=== PATIENT | female | born 1945 | race Caucasian/White ===

== ENCOUNTER 2021-12-15 13:21 | Day surgery (SDC) | payer MEDICARE, OTHER ==
[~2021-12-15 13:21] MED LIST: Cefuroxime 10 MG/ML SYRINGE EYERT SCH; Lidocaine 1% PF 2 ML SDV INJECT SCH; Pilocarpine 4% Ophth Soln 15 ML Bot EYERT SCH
[2021-12-15] MEDS: Polymyxin B/Trimethoprim 10 ML Bottle EYERT SCH ×3 (14:23→16:00)
[2021-12-15] MEDS: Brimonidine 0.2% Ophth Soln 5 ML Bottle EYERT SCH ×3 (14:25→16:00)
[2021-12-15] MEDS: Phenylephrine 2.5% Ophth Soln 2 ML Bot EYERT SCH ×5 (14:30→15:43)
[2021-12-15] MEDS: Tropicamide 1% Ophth Soln 15 ML Bottle EYERT SCH ×4 (14:34→15:14)
[2021-12-15] MEDS: Tetracaine HCl/PF 0.5% 4 ML Bottle EYEBOTH SCH ×4 (15:26→15:48)
== END 2021-12-15 16:10 | disposition home or self-care (01) ==
LOC: JD.SDS 13:21
PROVIDERS: ATTEND Ophthalmology
DX: H25.813 Combined forms of age-related cataract, bilateral (principal); H43.813 Vitreous degeneration, bilateral; H43.393 Other vitreous opacities, bilateral; H02.831 Dermatochalasis of right upper eyelid; F41.9 Anxiety disorder, unspecified; E78.00 Pure hypercholesterolemia, unspecified; Z79.899 Other long term (current) drug therapy; Z98.890 Other specified postprocedural states
CPT/HCPCS: 66984; C1780; J0697

== ENCOUNTER → 2022-01-12 | Day surgery (SDC) | payer MEDICARE, OTHER ==
[~2022-01-12] MED LIST changes: +Cefuroxime 10 MG/ML SYRINGE EYELF SCH; -Cefuroxime 10 MG/ML SYRINGE EYERT SCH; +Pilocarpine 4% Ophth Soln 15 ML Bot EYELF SCH; -Pilocarpine 4% Ophth Soln 15 ML Bot EYERT SCH
[2022-01-12] MEDS: Polymyxin B/Trimethoprim 10 ML Bottle EYELF SCH ×3 (12:22→13:37)
[2022-01-12] MEDS: Brimonidine 0.2% Ophth Soln 5 ML Bottle EYELF SCH ×2 (12:28→13:37)
[2022-01-12] MEDS: Phenylephrine 2.5% Ophth Soln 2 ML Bot EYELF SCH ×5 (12:32→13:18)
[2022-01-12] MEDS: Tropicamide 1% Ophth Soln 15 ML Bottle EYELF SCH ×4 (12:37→13:06)
[2022-01-12] MEDS: Tetracaine HCl/PF 0.5% 4 ML Bottle EYEBOTH SCH ×2 (13:14→13:25)
== END ==
LOC: JD.SDS 13:36
PROVIDERS: ATTEND Ophthalmology
DX: H25.812 Combined forms of age-related cataract, left eye (principal); H16.103 Unspecified superficial keratitis, bilateral; H16.223 Keratoconjunctivitis sicca, not specified as Sjogren's, bilateral; H02.834 Dermatochalasis of left upper eyelid; H02.831 Dermatochalasis of right upper eyelid; H43.813 Vitreous degeneration, bilateral; H43.393 Other vitreous opacities, bilateral; F41.9 Anxiety disorder, unspecified; E78.00 Pure hypercholesterolemia, unspecified; Z98.890 Other specified postprocedural states; Z79.899 Other long term (current) drug therapy; Z96.1 Presence of intraocular lens
CPT/HCPCS: 66984; C1780; J0697

== ENCOUNTER 2022-12-11 07:55 | Day surgery (SDC) | payer MEDICARE, BC ==
[~2022-12-11 07:55] MED LIST changes: +Acetaminophen 325 MG Tab PO SCH; -Cefuroxime 10 MG/ML SYRINGE EYELF SCH; +Dexamethasone 4 MG/ML 5 ML MDV ONE; +EPINEPHrine 1 MG/ML SDV ONE; +Lidocaine 1% 5 ML VIAL ONE; -Lidocaine 1% PF 2 ML SDV INJECT SCH; +Midazolam 1 MG/ML 2 ML SDV ONE; +Morphine 8 MG, EPINEPHrine 0.3 MG, Cefuroxime 750 MG, Ketorolac 30 MG, Sodium Chloride ... PRN; -Pilocarpine 4% Ophth Soln 15 ML Bot EYELF SCH; +Pregabalin 25 MG Cap PO SCH; +Propofol 200 MG/20 ML SDV ONE; +Ropivacaine 0.5% 5 MG/ML 30 ML SDV ONE; +Sodium Chloride 0.9% 10 ML Syringe FLUSH SCH; +ceFAZolin 2 GM Vial ONE; +fentaNYL 100 MCG/2 ML SDV ONE; +oxyCODONE ER 10 MG TAB.ER PO SCH
[2022-12-11] MEDS ORDERED: Lidocaine 1%/Sod Bicarbonate in NS 8.4% 1 ML Syringe IDERM PRN (08:00)
[2022-12-11] MEDS ORDERED: Lactated Ringers 1,000 ML IV SCH (08:00)
[2022-12-11] MEDS ORDERED: Tranexamic Acid 1,000 MG/10 ML Vial ONE (08:04)
[2022-12-11] MEDS ORDERED: Vancomycin 1 GM SDV ONE (08:04)
[2022-12-11] MEDS ORDERED: ePHEDrine 50 MG/ML SDV ONE (09:30)
[2022-12-11] MEDS ORDERED: Flumazenil 0.1 MG/ML 5 ML MDV ONE (10:17)
[2022-12-11] MEDS ORDERED: Acetaminophen/HYDROcodone 325-5 MG Tab PO PRN (11:18)
== END 2022-12-11 14:45 | disposition home or self-care (01) ==
LOC: JD.SDS 07:55
PROVIDERS: ATTEND Orthopaedic Surgery
DX: M17.11 Unilateral primary osteoarthritis, right knee (principal); E78.00 Pure hypercholesterolemia, unspecified; F41.9 Anxiety disorder, unspecified; G25.81 Restless legs syndrome; G47.33 Obstructive sleep apnea (adult) (pediatric); M81.0 Age-related osteoporosis without current pathological fracture; Z79.899 Other long term (current) drug therapy
CPT/HCPCS: 0055T; 27447; 64447; 73560; 97110; 97116; 97161; A9270; C1713; C1776; J0171; J0690; J0697; J1100; J1885; J2250; J2270; J2704; J2795; J3010; J3370; J3490; J7120; 01402

== ENCOUNTER → 2023-08-09 | Day surgery (SDC) | payer MEDICARE, BC ==
[2023-08-09] MEDS: Brimonidine 0.2% Ophth Soln 5 ML Bottle EYEBOTH SCH ×2 (14:20→15:58)
[2023-08-09] MEDS: Phenylephrine 2.5% Ophth Soln 2 ML Bot EYEBOTH SCH ×3 (14:25→14:45)
[2023-08-09] MEDS: Tropicamide 1% Ophth Soln 3 ML Bottle EYEBOTH SCH ×3 (14:30→14:50)
== END ==
LOC: JD.SDS 14:52
PROVIDERS: ATTEND Ophthalmology
DX: H26.493 Other secondary cataract, bilateral (principal); F41.9 Anxiety disorder, unspecified; E78.00 Pure hypercholesterolemia, unspecified; M19.90 Unspecified osteoarthritis, unspecified site; Z98.41 Cataract extraction status, right eye; Z98.42 Cataract extraction status, left eye; Z96.1 Presence of intraocular lens
CPT/HCPCS: 66821; A9270

== ENCOUNTER 2025-02-25 07:57 | Day surgery (SDC) | payer BC, MEDICARE ==
[~2025-02-25 07:57] MED LIST changes: -Acetaminophen 325 MG Tab PO SCH; -Dexamethasone 4 MG/ML 5 ML MDV ONE; -EPINEPHrine 1 MG/ML SDV ONE; -Lidocaine 1% 5 ML VIAL ONE; -Midazolam 1 MG/ML 2 ML SDV ONE; -Morphine 8 MG, EPINEPHrine 0.3 MG, Cefuroxime 750 MG, Ketorolac 30 MG, Sodium Chloride ... PRN; -Pregabalin 25 MG Cap PO SCH; -Propofol 200 MG/20 ML SDV ONE; -Ropivacaine 0.5% 5 MG/ML 30 ML SDV ONE; +Sodium Chloride 0.9% 10 ML Syringe FLUSH PRN; -ceFAZolin 2 GM Vial ONE; -fentaNYL 100 MCG/2 ML SDV ONE; -oxyCODONE ER 10 MG TAB.ER PO SCH
[2025-02-25] MEDS: Lactated Ringers 1,000 ML IV SCH (08:20)
[2025-02-25] MEDS ORDERED: Lidocaine 1% 6 ML ONE (09:12)
[2025-02-25] MEDS ORDERED: propofoL 500 MG/50 ML 50 ML ONE (09:12)
== END 2025-02-25 11:05 | disposition home or self-care (01) ==
LOC: JD.SDS 07:57
PROVIDERS: ATTEND Surgery
DX: Z12.11 Encounter for screening for malignant neoplasm of colon (principal); D12.3 Benign neoplasm of transverse colon; D12.5 Benign neoplasm of sigmoid colon; K29.50 Unspecified chronic gastritis without bleeding; K31.89 Other diseases of stomach and duodenum; K64.8 Other hemorrhoids; K57.30 Diverticulosis of large intestine without perforation or abscess without bleeding; K21.00 Gastro-esophageal reflux disease with esophagitis, without bleeding; Z80.0 Family history of malignant neoplasm of digestive organs; Z86.0101 Personal history of adenomatous and serrated colon polyps; G47.33 Obstructive sleep apnea (adult) (pediatric); E78.00 Pure hypercholesterolemia, unspecified; Z79.899 Other long term (current) drug therapy
CPT/HCPCS: 43239; 45380; J2003; J2704; J7120; 00813; 88305; 88342; 99100